=== PATIENT | female | born 1950 | race Caucasian/White ===

== ENCOUNTER 2017-08-18 11:53 | Inpatient (IN) | payer MEDICARE, OTHER ==
[~2017-08-18] VITALS: Ht 167.6 cm; Wt 59.4 kg
[~2017-08-18 11:53] MED LIST: HYDR7.5T76 PO; IBUP800T23 PO; TRAM50 PO
[2017-08-18] MEDS ORDERED: ePHEDrine/NS 25 MG/5 ML SYR IV ONE (12:00)
[2017-08-18] MEDS ORDERED: ONDANSETRON HCL 4 MG/2 ML VIAL IV PUSH ONE (12:00)
[2017-08-18] MEDS ORDERED: PHENYLEPH/NS 1000 MCG/10 ML SYR IV ONE (12:00)
[2017-08-18] MEDS ORDERED: PROPOFOL 200 MG/20 ML AMP IV ONE (12:00)
[2017-08-18] MEDS ORDERED: LIDOCAINE HCL 1% PF 5 ML SYRINGE OTHER ONE (12:00)
[2017-08-18] MEDS ORDERED: LACTATED RINGER'S 1000 ML INJ 3,000 ML IV ONE (12:00)
[2017-08-18] MEDS ORDERED: DEXAMETHASONE SOD PHOS 4 MG/ML VIAL IV ONE (12:00)
[2017-08-18] MEDS ORDERED: MIDAZOLAM HCL 2 MG/2 ML VIAL IV ONE (12:00)
[2017-08-18] MEDS ORDERED: ROCURONIUM INJ 50 MG/5 ML SYRINGE IV PUSH ONE (12:00)
[2017-08-18] MEDS ORDERED: MORPHINE SULFATE 4 MG/ML INJ IV ONE (12:00)
--- NOTE | 2017-08-18 12:05 | PD.HP.UP ---
H&P Update Note The Pre-Admit History and Physical Examination regarding the above named patient was reviewed (including, but not limited to, vital signs, heart, lungs, co-morbid conditions), and upon re-examination it is noted that: the patient's condition has not significantly changed since the last examination. Miller Barnett MD Aug 18, 2017 12:05
--- NOTE | 2017-08-18 12:57 | RADRPT ---
EXAM DATE/TIME: 08/18/2017 12:36 [facility] COMPARISON: No previous studies available for comparison. INDICATIONS : Evaluate for pneumonia, pneumothorax or communicable disease. Pre op for colon surgery for colon canc er. MEDICAL HISTORY : Chronic obstructive pulmonary disease. scoliosis SURGICAL HISTORY : None. ENCOUNTER: Initial ACUITY: 1 day PAIN SCORE: 0/10 LOCATION: Bilateral chest FINDINGS: Hyperinflation. Cardiomegaly. Dextroscoliosis of the thoracic spine. Linear densities at the left bas e suggestive of atelectasis versus scarring. CONCLUSION: Left basilar atelectasis versus scarring. Hyperinflation. Juan Manuel Rangel MD on August 18, 2017 at 12:56 Board Certified Radiologist. This report was verified electronically.
[2017-08-18] MEDS ORDERED: CHLORHEXIDINE GLUCONATE 2 % 1 PACK (2 CLOTHS) TOPICAL PRN (13:00)
[2017-08-18] MEDS ORDERED: INSULIN HUMAN REGULAR 1,000 UNITS/10 ML VIAL SQ PRN (13:00)
[2017-08-18] MEDS ORDERED: METRONIDAZOLE 500 MG/100 ML ISONTONIC SOLN IV SCH (13:00)
[2017-08-18] MEDS ORDERED: METOPROLOL TARTRATE 25 MG TAB PO PRN (13:00)
[2017-08-18] MEDS ORDERED: SODIUM CHLORID 0.9% 500 ML IV PRN (13:00)
[2017-08-18] MEDS ORDERED: ALVIMOPAN 12 MG CAPSULE - On Call PO SCH (13:00)
[2017-08-18] MEDS ORDERED: DEXT 5%-NACL 0.9% 1000 ML INJ 1,000 ML IV SCH (13:00)
[2017-08-18] MEDS ORDERED: LACTATED RINGER'S 1000 ML IV PRN (13:00)
[2017-08-18] MEDS ORDERED: POVIDONE IODINE 5% (ANTISEPSIS KIT) 4 APPLICATIONS EACH NARE PRN (13:00)
[2017-08-18] MEDS ORDERED: LORA0.5T PO (13:11)
[2017-08-18] MEDS ORDERED: METR-1 PO (13:11)
[2017-08-18] MEDS ORDERED: CIPR500T2 PO (13:11)
[2017-08-18] MEDS ORDERED: TRAM50TA PO (13:11)
[2017-08-18] MEDS ORDERED: DIPH25CA PO (13:11)
[2017-08-18] MEDS ORDERED: LEVOFLOXACIN 500 MG PREMIX INJ 100 ML IV SCH (14:00)
[2017-08-18 14:02] LABS: AUTOMATED NEUTROPHIL # 7.5 TH/MM3 (1.8-7.7); BASOPHIL # 0.1 TH/MM3 (0-0.2); BASOPHIL % 0.8 % (0.0-2.0); EOSINOPHIL % 0.4 % (0.0-4.0); HEMO FLAGS DIFF FINAL; LYMPH % 14.3 % (9.0-44.0); LYMPHOCYTE # 1.4 TH/MM3 (1.0-4.8); MEAN CELL VOLUME 91.9 FL (80.0-100.0); MEAN CORPUSCULAR HEMOGLOBIN 31.2 PG (27.0-34.0); MEAN CORPUSCULAR HGB CONC 33.9 % (32.0-36.0); MONO % 6.8 % (0.0-8.0); NEUT % 77.7 % (16.0-70.0); PLATELET COUNT 365 TH/MM3 (150-450); RED BLOOD COUNT 4.47 MIL/MM3 (4.00-5.30); RED CELL DISTRIBUTION WIDTH 13.5 % (11.6-17.2); WHITE BLOOD COUNT 9.7 TH/MM3 (4.0-11.0)
[2017-08-18] MEDS ORDERED: BUPIVACAINE HCL PF 0.5% 30 ML VIAL ONE ×4 (15:31→15:32)
--- NOTE | 2017-08-18 16:18 | PD.OP ---
Operative Report Date of Surgery: Aug 18, 2017 Preoperative Diagnosis: Sigmoid colon cancer Postoperative Diagnosis: Same Procedure: Cystoscopy with bilateral ureteral catheter placement Anesthesia: KEITH Surgeon: Christopher Johnson Jeweler Apprentice(s): None Resident Surgeon: None Operation and Findings: 67-year-old female with history of sigmoid colon cancer who was undergoing low anterior resection by Dr. Barnett. Request for made for bilateral ureteral catheter placement. Patient is brought to the operating room and placed in dorsal lithotomy position. She received preprocedure antibiotics and was given general endotracheal tube anesthesia. She is prepped and draped in usual sterile fashion. 22 Djiboutian cystoscopy was inserted and bladder cummings cystoscopy did not reveal any abnormalities. The left ureteral orifice was identified and a 5 Djiboutian catheter was inserted in the left ureteral orifice without difficulty. This was again repeated on the right side. 60 [place]iboutian Hernandez was inserted without difficulty catheters were attached the Hernandez. She tolerated the procedure well. Christopher Johnson DO Aug 18, 2017 16:18
[2017-08-18] MEDS ORDERED: SUGAMMADEX SODIUM 200 MG/2 ML VIAL IV PUSH ONE ×2 (18:01)
--- NOTE | 2017-08-18 18:14 | PD.OP ---
Operative Report Date of Surgery: Aug 18, 2017 Preoperative Diagnosis: Report of thermal injury left ureter Postoperative Diagnosis: Same Procedure: Cystoscopy with left double-J stent insertion Anesthesia: PRISCILAA Surgeon: Christopher Johnson Pediatric Clinical Dietician(s): None Resident Surgeon: None Operation and Findings: 67-year-old female who was undergoing a lower anterior resection for sigmoid colon cancer. Urology was called after a report of a thermal injury approximately one half inch to three quarters of an inch to the left ureter during surgery. At the beginning of the surgery bilateral ureteral catheters were placed by myself. Request is made for a placement of a indwelling left ureteral stent after this report. I arrived in the room after the patient was closed and did not get to evaluate the left ureter visually. The Hernandez catheter was removed as well as the left ureteral stent. The right ureteral stent had been removed earlier. 20 Nepalese scope was inserted in the bladder cummings cystoscopy did not reveal any abnormalities. The left ureteral orifice was identified and a 6 Nepalese open-ended catheter was inserted into this followed by 0.35 sensor wire. The wire was passed up to the kidney by feel. A 6 Nepalese 22 cm left double-J stent was then placed with a good curl in the bladder. A 16 Nepalese Hernandez catheter was inserted. She tolerated procedure well. The plan will be to leave the stent in for prostate 2 weeks to undergo cystoscopy with stent removal in the office. Christopher Johnson DO Aug 18, 2017 18:14
[2017-08-18] MEDS: D5-NS + KCL 20 MEQ INJ 1,000 ML IV SCH (18:32)
[2017-08-18] MEDS ORDERED: POTASSIUM CHLOR 20 MEQ PREMIX 100 ML IV PRN (18:45)
[2017-08-18] MEDS ORDERED: POTASSIUM CHLOR 40 MEQ PREMIX 100 ML IV PRN (18:45)
[2017-08-18] MEDS ORDERED: BUPIVACAINE HCL PF 0.5% 30 ML VIAL NB SCH (18:45)
[2017-08-18] MEDS ORDERED: ENALAPRILAT 1.25 MG/ML VIAL IV PUSH PRN (18:45)
[2017-08-18] MEDS ORDERED: BENZOCAINE 6 MG/MENTHOL 10 MG LOZENGE BUCCAL PRN (18:45)
[2017-08-18] MEDS ORDERED: NALOXONE HCL 0.4 MG/ML AMP IV PUSH PRN (18:45)
[2017-08-18] MEDS ORDERED: Post-op Orders (for Pharmacy) MISC XX ONE (18:45)
[2017-08-18] MEDS ORDERED: ENALAPRILAT 2.5 MG/2 ML VIAL IV PUSH PRN (18:45)
[2017-08-18] MEDS ORDERED: SODIUM CHLORIDE 0.9% FLUSH 5 ML FLUSH IVF PRN (18:45)
[2017-08-18] MEDS ORDERED: *morphine SULFATE 8 MG/ML PERIprocedure ONLY ONE (18:58)
[2017-08-18] MEDS ORDERED: *HYDROmorphone PF 1 MG VIAL PERIprocedural Use ONLY ONE (19:09)
[2017-08-18] MEDS ORDERED: DO NOT ADM ANY ANTICOAGULANT DRUGS PRN (19:15)
[2017-08-18] MEDS: MORPHINE SULFATE 30 MG/30 ML PCA IV SCH (19:20)
[2017-08-18 20:00] VITALS: BP 139/64; PULSE 68; RESP 18; TEMP 98.2; O2SAT 95
[2017-08-18] MEDS ORDERED: diphenhydrAMINE HCL 25 MG CAP PO ONE (20:00)
[2017-08-18] MEDS: SODIUM CHLORIDE 0.9% FLUSH 5 ML FLUSH IVF SCH (21:00)
[2017-08-18] MEDS: METOCLOPRAMIDE HCL 10 MG/2 ML VIAL IVS SCH (21:09)
[2017-08-18] MEDS: PCA - TOTAL MG MORPHINE DELIVERED PER SHIFT SCH (21:46)
[2017-08-18] MEDS: metroNIDAZOLE 500 MG INJ 100 ML IV SCH (22:46)
[2017-08-18 23:00] VITALS: BP 133/69; PULSE 80; PULSE 89; RESP 16; TEMP 98.4; O2SAT 95
[2017-08-19] VITALS (21 sets, daily range): BP systolic 109–146; BP diastolic 62–73; PULSE 85–108; RESP 16–19; TEMP 97.7–98.4; O2SAT 92–96
[2017-08-19] MEDS: D5-NS + KCL 20 MEQ INJ 1,000 ML IV SCH ×4 (00:15→23:56)
[2017-08-19] MEDS: MORPHINE SULFATE 30 MG/30 ML PCA IV SCH ×3 (03:02→16:15)
[2017-08-19 05:34] LABS: AUTOMATED NEUTROPHIL # 18.2 TH/MM3 (1.8-7.7); BASOPHIL % 0.1 % (0.0-2.0); HEMATOCRIT 41.5 % (35.0-46.0); HEMO FLAGS DIFF FINAL; LYMPH % 2.1 % (9.0-44.0); LYMPHOCYTE # 0.4 TH/MM3 (1.0-4.8); MEAN CELL VOLUME 92.6 FL (80.0-100.0); MEAN CORPUSCULAR HEMOGLOBIN 31.4 PG (27.0-34.0); MEAN CORPUSCULAR HGB CONC 33.9 % (32.0-36.0); MONO % 3.2 % (0.0-8.0); NEUT % 94.6 % (16.0-70.0); PLATELET COUNT 344 TH/MM3 (150-450); RED BLOOD COUNT 4.48 MIL/MM3 (4.00-5.30); RED CELL DISTRIBUTION WIDTH 13.4 % (11.6-17.2); WHITE BLOOD COUNT 19.3 TH/MM3 (4.0-11.0)
[2017-08-19] MEDS: PCA - TOTAL MG MORPHINE DELIVERED PER SHIFT SCH ×3 (05:34→21:00)
[2017-08-19 06:06] LABS: BICARBONATE 21.4 MEQ/L (21.0-32.0); POTASSIUM 4.2 MEQ/L (3.5-5.1)
[2017-08-19] MEDS: metroNIDAZOLE 500 MG INJ 100 ML IV SCH ×2 (06:06→16:00)
[2017-08-19 06:17] LABS: CALCIUM-PROTEIN CORRECTED 7.9 MG/DL (8.5-10.1)
--- NOTE | 2017-08-19 07:36 | HHI.PR ---
Subjective Remarks C/R Surg POD # 1 afebrile, VSS UO good HUMA mod Objective - Vital Signs Date Time Temp Pulse Resp B/P (MAP) Pulse Ox O2 Delivery O2 Flow Rate FiO2 08/19/17 07:15 99 08/19/17 05:34 16 08/19/17 03:00 98.2 146/73 (97) 96 08/18/17 19:50 Nasal Cannula 4 Result Diagram: 08/19/170 08/19/17 0450 Objective Remarks PE alert Abd - soft, wound dry, HUMA serosang stoma pink A/P Assessment and Plan Imp: stable post-op OOB dcre IVF tx to floor Miller Barnett MD Aug 19, 2017 07:36
[2017-08-19] MEDS: PANTOPRAZOLE SOD 40 MG DELAYED RELEASE TAB PO SCH (09:00)
[2017-08-19] MEDS ORDERED: ALVIMOPAN 12 MG CAPSULE - Post-op dosing PO SCH (09:00)
[2017-08-19] MEDS: SODIUM CHLORIDE 0.9% FLUSH 5 ML FLUSH IVF SCH ×2 (09:00→20:59)
[2017-08-19] MEDS: PANTOPRAZOLE SODIUM 40 MG VIAL IVP SCH (09:16)
[2017-08-19] MEDS: METOCLOPRAMIDE HCL 10 MG/2 ML VIAL IVS SCH ×2 (09:17→20:59)
--- NOTE | 2017-08-19 09:29 | MP ---
cc: IDANIA KIM ANDREW H. M.D. 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 PROCEDURE 1. Exploratory laparotomy with proctosigmoidectomy and en bloc total abdominal hysterectomy. Bilateral salpingo-oophorectomy. 2. Low pelvic anastomosis. 3. Diverting ileostomy 4. Omental flap 5. 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 SURGEON Dr. Miller Barnett SOFTWARE LICENSING SPECIALIST Dr. Govind Alfaro PROCEDURE The patient was placed in the supine position. After adequate general anesthesia, her legs were placed in the Morrow stirrups and supported appropriately. The abdomen, perineum and vaginal vault were then prepped with Betadine solution and draped in the usual sterile fashion. With Dr. Alfaro' assistance, the abdomen was opened through a infraumbilical transverse incision dividing the rectus muscles with electrocautery. Exploration revealed a large bulky tumor of the distal sigmoid proximal rectum which was adherent to the left pelvic sidewall and the posterior uterus and apex of the vagina in the cul-de-sac region. The proximal bowel was palpated very carefully and other then having some liquid stool and air appeared to be pretty grossly unremarkable. The small bowel was run from ligament of Treitz down to the ileocecal valve was unremarkable. The ovaries were seen and appropriate for her age. The liver had no palpable masses. The gallbladder was thin and normal in texture and had no stones. The stomach and duodenum were normal. The pancreas was quite hard and marisela and somewhat firm in texture along its entire length. The great vessels were of normal caliber and minimally calcified. First, the sigmoid colon was mobilized medially by dividing along the white line of Toldt. The left ureteral stent was identified and carefully preserved. Dissection then proceeded up the left gutter mobilizing the left colon off the retroperitoneum, taking down the splenic flexure entering the lesser sac and taking the gastrocolic omentum off the transverse colon. The right retroperitoneal space was then opened and the bowel dissected off the presacral fascia down to the pelvic floor. The pedicle for the superior hemorrhoidal vessels identified and divided between Tameka's obtaining hemostasis with Vicryl ties. The right ureteral stent was also identified and preserved. Dissection then proceeded up taking the left colic vessels for full left mobilization. Dissection then proceeded down into the pelvis at which point it was determined that an en bloc hysterectomy, bilateral salpingo-oophorectomy was going to be necessary. The ovarian vessels were therefore taken on both sides between Tameka's obtaining hemostasis with Vicryl ties. The round ligaments were divided with electrocautery. Dissection then proceeded down the infundibulopelvic ligaments taking the vessels with Vickie clamps and securing them with suture ligatures of 0 Vicryl. On the left side, the ureter was skeletonized due to involvement of at least inflammatory tissue along the length of the ureter down near the cul-de-sac. After the bladder flap was fully developed, dissection proceeded in a stepwise fashion until the apex of the vagina was identified and was opened. The vaginal dissection proceeded posteriorly identifying a plane between the posterior vaginal wall and the anterior rectal wall which finally got below the tumor into softer rectal tissues. At a point below the tumor mass, the mesorectum was taken with electrocautery and the bowel finally divided using a contour stapling device. The bowel was then sized to reach the rectal pouch without tension and with good blood supply dividing the marginal artery at the appropriate point, the bowel was then divided proximally between a pursestring suture device and a Vickie clamp removing the specimen. The end of the bowel was sized to accept a 29-mm EEA stapling anvil and this was secured with a pursestring suture. Dr. Alfaro then inserted the stapling instrument transanally and under direct vision it was brought up to the end of the rectal pouch. The trocar advanced. The stapler was then reassembled, the bowel aligned properly, the staple closed and fired. Upon withdrawal, two complete doughnuts of tissue were seen. Gentle insufflation did confirm an airtight anastomosis. The abdomen was then irrigated copiously with normal saline. Adequate hemostasis achieved at all sites. The vaginal cuff was closed with a running locking Vicryl suture with good hemostasis. Kevin-Garibay drain was placed down into the pelvis and brought up through a stab wound in the right lower quadrant secured to the skin with a nylon suture. A loop of distal ileum was chosen for the diverting ileostomy and an avascular plane created in the mesentery. A circular stab wound was created in the right upper quadrant and the loop brought up through the stab wound without tension and with good blood supply. The omentum was then fashioned and a long pedicle flap passed down the left gutter and wrapped around the anastomosis to separate it from the vaginal closure. No gross tumor was remaining at the end of the procedure. It should be noted, the bowel was prepped prior to the anastomosis with several liters of saline until the effluent was pretty clear. Finally, the transverse incision was closed anatomically in two layers using #1 PDS sutures to reapproximate the respective fascial layers. On-Q catheters were placed into the rectus sheaths on both sides brought up through subcutaneous tunnels below the transverse incision. The subcu tissue was irrigated copiously and the skin closed with a row of surgical aureliano. The wound area washed with normal saline and dried, sterile dressing of Telfa and gauze applied. Finally, the ileostomy was matured in the usual Sandhya fashion by creating an enterotomy, stapling the distal limb and maturing the proximal limb with a row of interrupted chromic catgut sutures around the circumference. At completion, the stoma did appear to be viable and was patent through the fascial level. Sterile ileostomy appliance fitted over the new stoma. The patient tolerated the procedure quite well and was brought to recovery room in stable condition. Sponge and needle counts were correct at the end of the procedure. MD LEVY Doherty/GISELLE /7:52 AM /9:10 AM
--- NOTE | 2017-08-19 10:24 | HHI.PR ---
Subjective Patient symptoms today Pt seen and examined. Some incisional pain. Urine blood tinged. Objective Vital Signs Vital Signs Date Time Temp Pulse Resp B/P (MAP) Pulse Ox O2 Delivery O2 Flow Rate FiO2 08/19/17 10:00 97 08/19/17 09:40 18 08/19/17 09:23 19 08/19/17 09:00 99 08/19/17 08:01 94 08/19/17 07:15 99 08/19/17 07:00 98.4 96 18 131/71 (91) 96 08/19/17 07:00 96 Nasal Cannula 2.00 08/19/17 06:01 99 08/19/17 05:34 16 08/19/17 05:00 96 08/19/17 04:00 87 08/19/17 03:02 16 08/19/17 03:00 91 08/19/17 03:00 98.2 88 16 146/73 (97) 96 08/19/17 02:10 91 08/19/17 01:18 85 08/18/17 23:00 98.4 80 16 133/69 (90) 95 08/18/17 23:00 89 08/18/17 21:46 16 08/18/17 20:00 98.2 68 18 139/64 (89) 95 08/18/17 19:50 82 14 130/73 (92) 97 Nasal Cannula 4 08/18/17 19:30 81 14 144/72 (96) 90 Nasal Cannula 4 08/18/17 19:20 14 08/18/17 19:15 80 14 132/65 (87) 90 Nasal Cannula 4 08/18/17 19:00 80 14 127/65 (85) 92 Nasal Cannula 4 08/18/17 18:45 87 14 127/68 (87) 92 Nasal Cannula 4 08/18/17 18:37 98.0 92 14 145/65 (91) 95 Nasal Cannula 4 08/18/17 13:28 97.8 71 20 138/78 (98) 96 Intake & Output 08/19/17 08/19/17 07:00 19:00 Intake Total 5256.9 ml 96 ml Output Total 2060 ml Balance 3196.9 ml 96 ml Intake Oral 0 ml IV Total 1756.9 ml 96 ml Other 3500 ml Output Urine Total 1650 ml Drainage Total 110 ml Estimated Blood Loss 300 ml # Bowel Movements 1 Result Diagram: 08/19/1744908/19/17449 Objective Remarks Abd:soft,nt,nd Urine: blood tinged Medications and IVs Current Medications Medications (Trade) Dose Ordered Sig/Toni Route Start Time Stop Time Status Last Admin Potassium Chloride/Dextrose/ Sod Cl 1,000 ml @ 100 mls/hr Q10H IV 08/18/17 18:32 08/19/17 06:06 (NS Flush) 2 ml UNSCH PRN IVF 08/18/17 18:45 (NS Flush) 2 ml BID IVF 08/18/17 21:00 08/19/17 09:00 Metronidazole 100 ml @ 200 mls/hr Q8H IV 08/18/17 23:00 08/19/17 15:29 08/19/17 06:06 (Marcaine Pf 0.5% Inj) 360 ml UNSCH NB 08/18/17 18:45 08/18/17 18:20 (Concord 5-325 Mg) 1 tab Q4H PRN PO 08/18/17 18:45 (Concord 5-325 Mg) 2 tab Q4H PRN PO 08/18/17 18:45 (Entereg) 12 mg BID PO 08/19/17 21:00 08/26/17 09:01 (Protonix Inj) 40 mg DAILY IVP 08/19/17 09:00 08/19/17 09:16 (Protonix) 40 mg DAILY PO 08/19/17 09:00 (Reglan Inj) 10 mg Q12HR IVS 08/18/17 21:00 08/19/17 09:17 (Zofran Inj) 4 mg Q6H PRN IV PUSH 08/18/17 18:45 (Vasotec Inj) 1.25 mg Q4H PRN IV PUSH 08/18/17 18:45 (Vasotec Inj) 2.5 mg Q6H PRN IV PUSH 08/18/17 18:45 (Chloraseptic Adilene) 1 lozenge UNSCH PRN BUCCAL 08/18/17 18:45 Potassium Chloride 100 ml @ 50 mls/hr UNSCH PRN IV 08/18/17 18:45 Potassium Chloride 100 ml @ 25 mls/hr UNSCH PRN IV 08/18/17 18:45 (Heparin Inj) 5,000 units Q12H SQ 08/19/17 18:00 (Narcan Inj) 0.4 mg UNSCH PRN IV PUSH 08/18/17 18:45 (Morphine 1 Mg/ ml BET TAKER) 30 mg UNSCH IV 08/18/17 18:45 08/19/17 09:23 BET TAKER Dosage Infused (Pha) 1 Q8HR .XX 08/18/17 22:00 08/19/17 05:34 (Ativan) 0.5 mg Q6H PRN PO 08/18/17 18:45 (Ultram) 50 mg Q6H PRN PO 08/18/17 18:45 Levofloxacin/ Dextrose 100 ml @ 100 mls/hr Q24H IV 08/19/17 15:00 Miscellaneous Information ALL NURSING DEPARTME... UNSCH PRN .XX 08/18/17 19:15 08/19/17 19:14 Assessment and Plan Assessment and Plan Stable s/p cysto with left JJ stent insertion after possible thermal injury to left ureter Left JJ stent in good position on KUB Maintain alonzo for now Stent to be removed in a couple of weeks as outpt. Christopher Johnson DO Aug 19, 2017 10:24
--- NOTE | 2017-08-19 10:31 | RADRPT ---
EXAM DATE/TIME: 08/19/2017 09:08 [facility] COMPARISON: No previous studies available for comparison. INDICATIONS : Evaluate left JJ stent placement. Abdominal pain. MEDICAL HISTORY : Chronic obstructive pulmonary disease. Carcinoma, colon. Asthma, Smoker. Scoliosis. SURGICAL HISTORY : Hysterectomy. Colostomy. ENCOUNTER: Subsequent ACUITY: 2 days PAIN SCORE: 10/10 LOCATION: Bilateral lower quadrant FINDINGS: A left internal ureteral stent is noted and appears to be adequate in position. A Kevin-Garibay drain is noted within the right lower quadrant. Ostomy site is noted within the right mid abdomen. There i s no bowel obstruction or ileus. No radiopaque densities resembling urinary calculi are noted. There is moderate compression deformity involving the L3 vertebral body of indeterminate age. CONCLUSION: Left internal ureteral stent appears to be in good position. No bowel obstruction or ileus. Moderate compression deformity involving the L3 vertebral body of indeterminate age. Jesse Amin MD on August 19, 2017 at 10:25 Board Certified Radiologist. This report was verified electronically.
[2017-08-19] MEDS: LORazepam 0.5 MG TAB PO PRN ×2 (12:20→18:16)
[2017-08-19] MEDS: LEVOFLOXACIN 500 MG PREMIX INJ 100 ML IV SCH (14:34)
--- NOTE | 2017-08-19 16:23 | EKG ---
Date Performed: 08/18/2017 Time Performed: 12:29:24 PTAGE: 67 years EKG: Sinus rhythm NORMAL ECG PREVIOUS TRACING : 11/30/2012 03.13 Compared to prior tracing no significant change DOCTOR: Marybeth Stock Interpretating Date/Time 08/19/2017 16:22:31
[2017-08-19] MEDS: HEPARIN SODIUM - SQ 10,000 UNITS/ML VIAL SQ SCH (17:19)
--- NOTE | 2017-08-19 18:19 | PD.WCN.NOT ---
Wound Consult Description: Consult for New Ostomy Teaching of stoma per Dr Barnett Communicated with: Patient Lisa, RN Recommendation: [facility] opening and closing pouch, and attaching pouch to wafer. Read educational material left at bedside Observe staff opening, emptying, and closing pouch Additional Information: Patient seen on for ostomy teaching and assessment. Ostomy Type: Ileostomy Surgeon: Miller Barnett MD Date of Surgery: Aug 18, 2017 Complete: Education materials Educated patient on: General bowel anatomy and their function Opening and closing pouch Attaching pouch to wafer Stoma appearance Stoma size Output Additional information Patient seen briefly on for ostomy assessment and teaching. Patient is currently POD #1 and using MANAGER FIELD SALES pump often. Patient is falling asleep during teaching and demonstration. Patient and narrative writer made plans for teaching session Wednesday08/20/17. Stoma on right side abdomen is red, round, moist, protruding, lumen noted @ 9 o'clock. There is minimal mucus and sanguinous fluid noted to pouch that was not emptied. Appliance is intact. Narda CamargoN Aug 19, 2017 18:19
[2017-08-19] MEDS: ACETAMINOPHEN/HYDROcodone 325 MG/5 MG TAB PO PRN (20:58)
[2017-08-19] MEDS: ALVIMOPAN 12 MG CAPSULE PO SCH (20:58)
[2017-08-19] MEDS: traMADol HCL 50 MG TAB PO PRN (23:54)
[2017-08-20] VITALS: BP 135/63; PULSE 98; RESP 18; TEMP 97.8; O2SAT 92
[2017-08-20] MEDS: MORPHINE SULFATE 30 MG/30 ML PCA IV SCH ×2 (00:22→16:44)
[2017-08-20 04:00] VITALS: BP 136/65; PULSE 95; RESP 18; TEMP 97.3; O2SAT 94
[2017-08-20] MEDS: PCA - TOTAL MG MORPHINE DELIVERED PER SHIFT SCH ×3 (05:31→20:21)
[2017-08-20] MEDS: HEPARIN SODIUM - SQ 10,000 UNITS/ML VIAL SQ SCH ×2 (05:32→17:46)
[2017-08-20 08:00] VITALS: BP 132/66; PULSE 96; RESP 18; TEMP 98.3; O2SAT 92
[2017-08-20] MEDS: PANTOPRAZOLE SODIUM 40 MG VIAL IVP SCH (09:00)
[2017-08-20] MEDS: SODIUM CHLORIDE 0.9% FLUSH 5 ML FLUSH IVF SCH ×2 (09:00→20:20)
[2017-08-20 09:07] LABS: AUTOMATED NEUTROPHIL # 14.5 TH/MM3 (1.8-7.7); BASOPHIL % 0.2 % (0.0-2.0); HEMATOCRIT 34.5 % (35.0-46.0); HEMO FLAGS DIFF FINAL; LYMPH % 5.9 % (9.0-44.0); MEAN CELL VOLUME 93.7 FL (80.0-100.0); MEAN CORPUSCULAR HEMOGLOBIN 31.9 PG (27.0-34.0); MONO % 5.4 % (0.0-8.0); NEUT % 88.5 % (16.0-70.0); PLATELET COUNT 296 TH/MM3 (150-450); RED BLOOD COUNT 3.69 MIL/MM3 (4.00-5.30); RED CELL DISTRIBUTION WIDTH 13.7 % (11.6-17.2); WHITE BLOOD COUNT 16.3 TH/MM3 (4.0-11.0)
[2017-08-20] MEDS: PANTOPRAZOLE SOD 40 MG DELAYED RELEASE TAB PO SCH (09:07)
[2017-08-20] MEDS: METOCLOPRAMIDE HCL 10 MG/2 ML VIAL IVS SCH ×2 (09:07→20:20)
[2017-08-20] MEDS: ALVIMOPAN 12 MG CAPSULE PO SCH ×2 (09:07→20:20)
[2017-08-20] MEDS: LORazepam 0.5 MG TAB PO PRN ×2 (09:20→22:00)
[2017-08-20 09:53] LABS: BICARBONATE 21.9 MEQ/L (21.0-32.0); POTASSIUM 4.2 MEQ/L (3.5-5.1)
[2017-08-20 12:00] VITALS: BP 135/70; PULSE 97; RESP 18; TEMP 98.4; O2SAT 92
[2017-08-20] MEDS: D5-NS + KCL 20 MEQ INJ 1,000 ML IV SCH (12:05)
--- NOTE | 2017-08-20 15:15 | PD.WCN.NOT ---
Wound Consult Description: Consult for New Ostomy Teaching of stoma per Dr Barnett Communicated with: Patient, who was falling asleep during assessment and teaching (with COACH WIRER pump). Recommendation: [facility] opening and closing pouch, and attaching pouch to wafer. Read educational material left at bedside and write down any questions you may have for next teaching session Observe staff opening, emptying, and closing pouch when 1/3-1/2 full Additional Information: Patient seen on [address] [place] [address] for ostomy assessment and minimal teaching due to patient status Ostomy Type: Ileostomy Surgeon: Miller Barnett MD Date of Surgery: Aug 18, 2017 Complete: Starter kit (Verbal consent obtained), Education materials ([facility] educational materials left in patient room for reinforcement of teaching), Other (Supplies ordered in size 1 3/4" and 2 1/4" for when appliance needs to be changed.) Educated patient on: Stoma appearance Function of ileostomy Stoma size 1 1/4" Removing barrier with adhesive removal wipes Assessing back side of wafer Assessing peristomal skin for breakdown Measuring stoma for correct appliance size Applying barrier to abdomen and then applying closed pouch to barrier Emptying pouch when 1/3- 1/2 full, before bedtime, and first thing in the morning Additional information Patient seen on [address] [place] [address] for ostomy assessment and teaching of ileostomy noted to right side abdomen. Patient was falling asleep while attempting to educate her on her stoma and appliances. Educational material left in room, patient states her daughter will read it to her when she gets here. Appliances in size 1 3/4" and 2 1/4' ordered from [facility] for appliance change. [facility] Aug 20, 2017 15:15
[2017-08-20 16:00] VITALS: BP 160/72; PULSE 95; RESP 18; TEMP 99.1; O2SAT 92
[2017-08-20] MEDS: LEVOFLOXACIN 500 MG PREMIX INJ 100 ML IV SCH (16:42)
[2017-08-20] MEDS: ONDANSETRON HCL 4 MG/2 ML VIAL IV PUSH PRN (18:15)
--- NOTE | 2017-08-20 19:24 | HHI.FF ---
Face to Face Verification Diagnosis: (1) Rectosigmoid cancer Physical Therapy Order: Evaluate and Treat, Improve ambulation, Strength and gait training Home Health Nursing Order: Medical education Signs/symptoms of disease process Wound care and dressing changes Instructions: stoma care I have seen patient Dipti Oh on 08/20/17. My clinical findings support the need for the requested home health care services because: Ltd mobility - disease progression Deconditioned w/ increased weakness Need for psychosocial assistance Infection w/ risk of complications I certify that my clinical findings support that this patient is homebound because: Post-op weakness Unsteady gait/balance Miller Barnett MD Aug 20, 2017 19:24
[2017-08-20 20:00] VITALS: BP 141/70; PULSE 100; RESP 17; TEMP 99.7; O2SAT 90
[2017-08-20] MEDS: guaiFENesin E.R. 600 MG TAB PO PRN (22:10)
--- NOTE | 2017-08-20 22:52 | HHI.PR ---
Subjective Remarks C/R Surg POD # 2 afebrile, VSS UO good HUMA mod Objective - Vital Signs Date Time Temp Pulse Resp B/P (MAP) Pulse Ox O2 Delivery O2 Flow Rate FiO2 08/20/17 20:21 16 08/20/17 20:00 99.7 100 141/70 (93) 90 08/19/17 21:00 Nasal Cannula 1.00 Result Diagram: 08/20/1772908/20/17 0730 Objective Remarks PE alert Abd - soft, wound dry, HUMA serosang stoma pink, ON-q dc'd A/P Assessment and Plan Imp: OOB dcre IVF start PO resp tx Miller Barnett MD Aug 20, 2017 22:52
[2017-08-21] VITALS (10 sets, daily range): BP systolic 123–153; BP diastolic 56–82; PULSE 81–109; RESP 17–30; TEMP 96.6–99.1; O2SAT 80–95
[2017-08-21] MEDS: RESP: ALBUTEROL 2.5 MG/3 ML NEB (SCH) INH ×5 (00:04→19:23)
[2017-08-21] MEDS: D5-NS + KCL 20 MEQ INJ 1,000 ML IV SCH ×2 (00:29→10:29)
[2017-08-21] MEDS: PCA - TOTAL MG MORPHINE DELIVERED PER SHIFT SCH ×3 (05:53→22:00)
[2017-08-21] MEDS: HEPARIN SODIUM - SQ 10,000 UNITS/ML VIAL SQ SCH ×2 (05:53→18:00)
[2017-08-21] MEDS: LORazepam 0.5 MG TAB PO PRN ×2 (06:21→22:07)
[2017-08-21] MEDS: MORPHINE SULFATE 30 MG/30 ML PCA IV SCH ×2 (06:24→19:26)
[2017-08-21] MEDS: guaiFENesin E.R. 600 MG TAB PO PRN (08:38)
[2017-08-21] MEDS: PANTOPRAZOLE SODIUM 40 MG VIAL IVP SCH (08:38)
[2017-08-21] MEDS: PANTOPRAZOLE SOD 40 MG DELAYED RELEASE TAB PO SCH (08:38)
[2017-08-21] MEDS: ALVIMOPAN 12 MG CAPSULE PO SCH ×2 (08:38→19:27)
[2017-08-21] MEDS: SODIUM CHLORIDE 0.9% FLUSH 5 ML FLUSH IVF SCH ×2 (08:39→19:28)
[2017-08-21] MEDS: METOCLOPRAMIDE HCL 10 MG/2 ML VIAL IVS SCH ×2 (08:40→19:27)
[2017-08-21] MEDS ORDERED: FUROSEMIDE 40 MG/4 ML VIAL ONE (15:35)
[2017-08-21] MEDS: LEVOFLOXACIN 500 MG TAB PO SCH (15:39)
[2017-08-21] MEDS ORDERED: FUROSEMIDE 20 MG/2 ML VIAL IV PUSH ONE (15:45)
[2017-08-21 16:10] LABS: BLOOD GAS BASE EXCESS 0.6 mmol/L (-2-2); BLOOD GAS CARBOXYHEMOGLOBIN 0.9 % (0-4); BLOOD GAS HCO3 25 mmol/L (22-26); BLOOD GAS METHEMOGLOBIN 0.8 % (0-2); BLOOD GAS O2 HGB SATURATION 88 % (90-100); BLOOD GAS OXYGEN CONTENT 15.6 Vol % (12.0-20.0); BLOOD GAS PCO2 38 mmHg (38-42); BLOOD GAS PO2 55 mmHg (61-120); BLOOD GAS TOTAL HGB 12.6 G/DL (12.0-16.0); TEMP CORR TO 98.6
[2017-08-21 16:13] LABS: CRITICAL VALUE YES; DRAW SITE LT RADIAL; LITER FLOW 15 L/M; NUMBER OF ARTERIAL PUNCTURES 1; OXYGEN DEVICE NONREBREATHER; STAT YES
--- NOTE | 2017-08-21 16:15 | RADRPT ---
EXAM DATE/TIME: 08/21/2017 15:47 [facility] COMPARISON: CHEST SINGLE AP, August 18, 2017, 12:36. INDICATIONS : Shortness of breath. MEDICAL HISTORY : Chronic obstructive pulmonary disease. SURGICAL HISTORY : None. ENCOUNTER: Subsequent ACUITY: 3 days PAIN SCORE: 0/10 LOCATION: chest FINDINGS: Small to moderate right and small left pleural effusions are developing. There is mild bibasilar atel ectasis. There a few air bronchograms in the left infrahilar region suggesting a possible pneumonia. No pneumothorax. Heart size stable and within normal limits. CONCLUSION: Small moderate bilateral pleural effusions have developed. Mild bibasilar atelectasis. Potentially early or mildpneumonia in the proper clinical setting. Enrrique Turk MD on August 21, 2017 at 16:12 Board Certified Radiologist. This report was verified electronically.
[2017-08-21] MEDS ORDERED: SODIUM PHOSPHATE INJ 30 MMOL in SODIUM CHLOR 0.9% 250 ML INJ 240 ML IV PRN (17:30)
[2017-08-21] MEDS ORDERED: POTASSIUM CHLORIDE 25 MEQ EFFERVESCENT TAB PO PRN (17:30)
[2017-08-21] MEDS ORDERED: POTASSIUM PHOSPHATE MONOBASIC 500 MG TAB PO PRN (17:30)
[2017-08-21] MEDS ORDERED: POTASSIUM CHLOR 40 MEQ PREMIX 100 ML IV PRN ×2 (17:30)
[2017-08-21] MEDS ORDERED: POTASSIUM CHLOR 20 MEQ PREMIX 100 ML IV PRN ×2 (17:30)
[2017-08-21] MEDS ORDERED: POTASSIUM PHOSPHATE INJ 30 MMOL in SODIUM CHLOR 0.9% 250 ML INJ 250 ML IV PRN (17:30)
[2017-08-21] MEDS ORDERED: MAGNESIUM OXIDE 400 MG TAB PO PRN (17:30)
[2017-08-21] MEDS ORDERED: MAGNESIUM SULFATE INJ 2 GM in SODIUM CHLORIDE 0.9% INJ 96 ML IV PRN (17:30)
[2017-08-21] MEDS ORDERED: POTASSIUM PHOSPHATE MONOBASIC 500 MG TAB PO/TUBE PRN (17:30)
[2017-08-21] MEDS ORDERED: MAGNESIUM SULFATE INJ 4 GM in SODIUM CHLORIDE 0.9% INJ 92 ML IV PRN (17:30)
--- NOTE | 2017-08-21 17:45 | PD.CONS ---
HPI Service Critical Care Medicine Consult Requested By Colorectal Surgery Service Reason for Consult Respiratory Insufficiency, Hypoxemia Primary Care Physician Non-Staff History of Present Illness Otherwise healthy, pleasant 67 y/o woman recently s/p en bloc resection of upper rectum, sigmoid colon, and uterus for a T4b primary rectal malignancy. Low anastomosis and diverting ileostomy. She developed sudden SOB and tachypnea today with documented hypoxemia by ABG on NRBM. CXR confirms small bilateral pleural effusions and interstitial edema. In addition there is considerable bibasilar atelectasis undoubtedly related to limited diaphragmatic excursions - probably from postoperative abdominal pain. She has received lasix with a > 1 liter diuresis and already looks better.Afebrile throughout postop course. She has a considerable smoking history and her preop CXR reveals baseline COPD. Review of Systems ROS No chest pain. Well controlled abdominal pain. No fevers or chills. Past Family Social History Allergies: Coded Allergies: acetaminophen (Unverified Allergy, Severe, 05/18/17) erythromycin base (Unverified Allergy, Severe, 05/18/17) penicillin G (Unverified Allergy, Severe, ANAPHYLACTIC SHOCK, 05/18/17) aspirin (Verified Allergy, Unknown, 08/18/17) codeine (Verified Allergy, Unknown, 08/18/17) Uncoded Allergies: ALL CILLINS (Allergy, Severe, SOB, 11/08/10) ADHESIVE TAPE (Allergy, Unknown, 08/09/06) NSAIDS (Allergy, Unknown, bleeding, 08/18/17) Past Medical History Smoking. Ativan for anxiety. Physical Exam Vital Signs Vital Signs Date Time Temp Pulse Resp B/P (MAP) Pulse Ox O2 Delivery O2 Flow Rate FiO2 08/21/17 16:00 98.1 108 22 153/76 (101) 80 08/21/17 14:45 92 Non-Rebreather 08/21/17 12:00 92 08/21/17 12:00 96.9 100 20 136/66 (89) 88 08/21/17 08:45 92 Venturi Mask 6.00 50 08/21/17 08:00 97.9 93 18 138/63 (88) 90 08/21/17 08:00 90 Nasal Cannula 3.00 08/21/17 06:24 16 08/21/17 05:53 16 08/21/17 04:00 96.6 90 18 131/72 (91) 92 08/21/17 00:44 90 Venturi Mask 6.00 50 08/21/17 00:04 88 Nasal Cannula 5.00 08/21/17 00:00 97.3 96 17 141/67 (91) 91 08/20/17 20:21 16 08/20/17 20:12 Room Air 3.00 08/20/17 20:00 99.7 100 17 141/70 (93) 90 Physical Exam Gen: Healthy appearing, no acute distress. Head: Atraumatic, normal. Neck: Supple, airway widely patent. Lungs: Clear, some crackles in bases. Decreased breath sounds in bases. Strong cough. Heart: NL S1S2, RRR. No JVD. Abdomen: Postsurgical, stoma viable, well perfused. Nondistended. Extremities: Warm, well perfused. Neuro: O X 3, cooperative. Moves 4 limbs to command. SARAHY. EOMs intact. Laboratory Laboratory Tests Test 08/21/17 16:00 Blood Gas Puncture Site LT RADIAL Blood Gas Patient Temperature 98.6 Blood Gas HCO3 25 Blood Gas Base Excess 0.6 Blood Gas Oxygen Saturation 88 Arterial Blood pH 7.42 Arterial Blood Partial Pressure CO2 38 Arterial Blood Partial Pressure O2 55 Arterial Blood Oxygen Content 15.6 Arterial Blood Carboxyhemoglobin 0.9 Arterial Blood Methemoglobin 0.8 Blood Gas Hemoglobin 12.6 Oxygen Delivery Device NONREBREATHER Blood Gas Liter Flow 15 Result Diagram: 08/20/17 0730 08/20/17 0730 Assessment and Plan Assessment and Plan Assessment: 1. Respiratory insufficiency, hypoxemic. 2. S/P colon/uterus resection for rectal malignancy. 3. COPD. 4. Atelectasis. Plan: 1. Continue diuretics. 2. Bronchodilators. 3. Incentive spirometry. 4. BNP. 5. BiPAP hs. 6. Deep breathing, coughing exercises. Overall impression: This does not appear to be pneumonia but rather basilar atelectasis and mild fluid overload. We will try to get her bases better aerated with mechanical maneuvers and continue diuresis. Angel Redd MD Aug 21, 2017 17:45
[2017-08-21] MEDS ORDERED: FUROSEMIDE 40 MG/4 ML VIAL IV PUSH ONE (21:00)
[2017-08-21] MEDS: ACETAMINOPHEN/HYDROcodone 325 MG/5 MG TAB PO PRN (22:09)
[2017-08-21] MEDS: traMADol HCL 50 MG TAB PO PRN (22:10)
[2017-08-22] VITALS (8 sets, daily range): BP systolic 104–155; BP diastolic 63–79; PULSE 86–110; RESP 20–28; TEMP 95.2–98.7; O2SAT 88–93
[2017-08-22] MEDS: PCA - TOTAL MG MORPHINE DELIVERED PER SHIFT SCH ×3 (05:31→20:25)
--- NOTE | 2017-08-22 05:35 | RADRPT ---
EXAM DATE/TIME: 08/22/2017 04:22 [facility] COMPARISON: CHEST SINGLE AP, August 21, 2017, 15:47. INDICATIONS : Hypoxemia MEDICAL HISTORY : Chronic obstructive pulmonary disease. scoliosis, Colon Ca. Asthma, SURGICAL HISTORY : Hysterectomy. Colostomy. ENCOUNTER: Subsequent ACUITY: 4 - 6 days PAIN SCORE: 0/10 LOCATION: Bilateral chest FINDINGS: Increasing opacity in the left lower lung, now with consolidation and loss of delineation of the medi al left hemidiaphragm. Elevation of the right hemidiaphragm. No right lung infiltrates seen. The h eart is upper limits normal size. CONCLUSION: Increasing infiltrates at the left base, now with consolidation. Alex Means MD on August 22, 2017 at 5:32 Board Certified Radiologist. This report was verified electronically.
[2017-08-22] MEDS: HEPARIN SODIUM - SQ 10,000 UNITS/ML VIAL SQ SCH ×2 (05:36→18:24)
[2017-08-22] MEDS: LORazepam 0.5 MG TAB PO PRN ×3 (06:21→18:24)
[2017-08-22 07:04] LABS: AUTOMATED NEUTROPHIL # 8.5 TH/MM3 (1.8-7.7); BASOPHIL % 0.3 % (0.0-2.0); EOSINOPHIL % 0.1 % (0.0-4.0); HEMATOCRIT 36.2 % (35.0-46.0); HEMO FLAGS DIFF FINAL; LYMPH % 10.4 % (9.0-44.0); LYMPHOCYTE # 1.1 TH/MM3 (1.0-4.8); MEAN CELL VOLUME 91.7 FL (80.0-100.0); MEAN CORPUSCULAR HEMOGLOBIN 31.2 PG (27.0-34.0); MEAN CORPUSCULAR HGB CONC 34.1 % (32.0-36.0); MONO % 6.6 % (0.0-8.0); NEUT % 82.6 % (16.0-70.0); PLATELET COUNT 359 TH/MM3 (150-450); RED BLOOD COUNT 3.95 MIL/MM3 (4.00-5.30); RED CELL DISTRIBUTION WIDTH 13.1 % (11.6-17.2); WHITE BLOOD COUNT 10.3 TH/MM3 (4.0-11.0)
[2017-08-22 07:14] LABS: BICARBONATE 29.8 MEQ/L (21.0-32.0); POTASSIUM 3.3 MEQ/L (3.5-5.1)
[2017-08-22] MEDS: RESP: ALBUTEROL 2.5 MG/3 ML NEB (SCH) INH ×4 (07:58→19:32)
[2017-08-22] MEDS: SODIUM CHLORIDE 0.9% FLUSH 5 ML FLUSH IVF SCH ×2 (09:00→20:25)
[2017-08-22] MEDS: ALVIMOPAN 12 MG CAPSULE PO SCH ×2 (09:37→20:25)
[2017-08-22] MEDS: PANTOPRAZOLE SOD 40 MG DELAYED RELEASE TAB PO SCH (09:37)
[2017-08-22] MEDS: METOCLOPRAMIDE HCL 10 MG/2 ML VIAL IVS SCH ×2 (09:37→20:25)
[2017-08-22] MEDS: FUROSEMIDE 20 MG/2 ML VIAL IV PUSH SCH ×2 (09:38→20:25)
[2017-08-22] MEDS: D5-NS + KCL 20 MEQ INJ 1,000 ML IV SCH (10:29)
[2017-08-22] MEDS: MORPHINE SULFATE 30 MG/30 ML PCA IV SCH ×2 (11:39→23:05)
--- NOTE | 2017-08-22 12:06 | EKG ---
Date Performed: 08/21/2017 Time Performed: 16:05:14 PTAGE: 67 years EKG: SINUS TACHYCARDIA POSSIBLE RIGHT VENTRICULAR CONDUCTION DELAY Normal ECG PREVIOUS TRACING : 08/18/2017 12.29 Compared to prior tracing no significant change DOCTOR: Govind Guevara Interpretating Date/Time 08/22/2017 12:04:02
[2017-08-22] MEDS: LEVOFLOXACIN 500 MG TAB PO SCH (14:21)
[2017-08-22] MEDS ORDERED: SOD PHOSPHATE/SOD BIPHOSPHATE (ADULT) ENEMA 133ML RECTAL ONE (21:45)
[2017-08-22] MEDS ORDERED: IOHEXOL 350 MG/ML 10 ML VIAL (for RAD DIAG) IVCONTRAST ONE (21:58)
--- NOTE | 2017-08-22 22:13 | RADRPT ---
EXAM DATE/TIME: 08/22/2017 21:45 This report includes an Addendum and supersedes previous reports for this exam. [facility] COMPARISON: No previous studies available for comparison. INDICATIONS : Short of breath. Evaluate for embolism. IV CONTRAST: 75 cc Omnipaque 350 (iohexol) IV ; Cumulative dose for multiple exams. RADIATION DOSE: 14.26 CTDIvol (mGy) MEDICAL HISTORY : Colon cancer. SURGICAL HISTORY : None. ENCOUNTER: Initial ACUITY: 1 day PAIN SCALE: 0/10 LOCATION: chest TECHNIQUE: Volumetric scanning of the chest was performed using a pulmonary embolism protocol MIP images were re constructed. Using automated exposure control and adjustment of the mA and/or kV according to patien t size, radiation dose was kept as low as reasonably achievable to obtain optimal diagnostic quality images. DICOM format image data is available electronically for review and comparison. Follow-up recommendations for detected pulmonary nodules are based at a minimum on nodule size and pa tient risk factors according to Fleischner Society Guidelines. FINDINGS: PULMONARY ARTERIES: No evidence of pulmonary bolus. LUNGS: Patchy groundglass opacity in the left upper lobe 8mm nodular density in the left upper lobe on image #31. Large areas of dependent consolidations/atelectasis of the lower lobes. PLEURAE: There is no pleural thickening or pleural effusion. MEDIASTINUM: Coronary artery calcifications. Aortic diameter within normal limits. Multiple mildly prominent, like ly reactive mediastinal lymph nodes. MUSCULOSKELETAL: Within normal limits for patient age. MISCELLANEOUS: Abdomen will be fluid described on abdomen CT report. CONCLUSION: 1. No evidence of pulmonary embolus. 2. Large areas of dependent consolidation/atelectasis of lower lobes. Patchy groundglass opacity in t he left upper lobe. Differential diagnosis includes infection and pulmonary edema. Joe Cervantes MD on August 22, 2017 at 22:05 Board Certified Radiologist. This report was verified electronically. ADDENDUM: Addendum to conclusion: 3. 8mm nodular density in the left upper lobe. Using Fleischner 2017 criteri a, recommend 6 month followup noncontrast chest CT. Joe Cervantes MD on August 22, 2017 at 23:00 Board Certified Radiologist. This report was verified electronically.
--- NOTE | 2017-08-22 22:22 | RADRPT ---
EXAM DATE/TIME: 08/22/2017 21:47 [facility] COMPARISON: CT LUMBAR SPINE W/O CONTRAST, December 28, 2015, 12:51. INDICATIONS : Diffuse abdominal pain. IV CONTRAST: 75 cc Omnipaque 350 (iohexol) IV ; Cumulative dose for multiple exams. ORAL CONTRAST: No oral contrast ingested. RADIATION DOSE: 11.45 CTDIvol (mGy) MEDICAL HISTORY : Colon cancer. SURGICAL HISTORY : None. ENCOUNTER: Initial ACUITY: 1 day PAIN SCALE: 5/10 LOCATION: Bilateral abdomen TECHNIQUE: Volumetric scanning of the abdomen and pelvis was performed. Using automated exposure control and ad justment of the mA and/or kV according to patient size, radiation dose was kept as low as reasonably achievable to obtain optimal diagnostic quality images. DICOM format image data is available electro nically for review and comparison. FINDINGS: LOWER LUNGS: Lower lungs fully described on chest CT report. LIVER: Homogeneous density without lesion. There is no dilation of the biliary tree. No calcified gallston es. SPLEEN: Normal size without lesion. PANCREAS: Within normal limits. KIDNEYS: Left-sided double-J ureteral stent in place. Moderate diffuse left hydroureter. Mild to moderate left hydronephrosis. Mild right hydronephrosis. Proximal right hydroureter. Multiple bilateral renal cyst s. ADRENAL GLANDS: 2 cm x 1.6 cm right adrenal nodule. It measured 1.7 x 1.[address] lumbar spine of 12/28/2015. H ounsfield unit measurements on that study suggest adenoma. VASCULAR: There is no aortic aneurysm. BOWEL/MESENTERY: Postsurgical findings in the rectum. Surgical drain in the pelvis. Stoma in the right upper quadrant of the abdomen. Stranding opacity in the right upper quadrant of the abdomen indicating possible infl ammatory or postsurgical change. Wall thickening of the transverse colon diffusely, nonspecific. ABDOMINAL WALL: Stoma in the right upper quadrant RETROPERITONEUM: There is no lymphadenopathy. BLADDER: Hernandez catheter in place. Bladder collapsed. REPRODUCTIVE: Within normal limits. INGUINAL: There is no lymphadenopathy or hernia. MUSCULOSKELETAL: Old L3 lumbar spine vertebral body fracture. CONCLUSION: 1. Postsurgical findings are identified in the region of the rectum. Surgical drain in the right side of the pelvis/right lower quadrant. Stoma in the right upper quadrant. 2. Nonspecific diffuse wall thickening of collapsed transverse colon. 3. Left-sided double-J ureteral stent. Moderate diffuse left hydroureter and mild to moderate left hy dronephrosis. Mild right hydronephrosis. 4. 2 cm right adrenal nodule with slight increase in size when compared to 12/28/2015. Hounsfield unit measurements of the prior study suggest a likely adenoma. Joe Cervantes MD on August 22, 2017 at 22:11 Board Certified Radiologist. This report was verified electronically.
[2017-08-23] VITALS (8 sets, daily range): BP systolic 104–123; BP diastolic 58–70; PULSE 101–115; RESP 17–20; TEMP 97.1–98.5; O2SAT 86–92
[2017-08-23] MEDS: PCA - TOTAL MG MORPHINE DELIVERED PER SHIFT SCH ×3 (05:11→20:47)
[2017-08-23] MEDS: HEPARIN SODIUM - SQ 10,000 UNITS/ML VIAL SQ SCH ×2 (05:12→17:27)
[2017-08-23] MEDS: LORazepam 0.5 MG TAB PO PRN ×3 (05:16→18:43)
[2017-08-23] MEDS: ALVIMOPAN 12 MG CAPSULE PO SCH ×2 (08:19→20:37)
[2017-08-23] MEDS: PANTOPRAZOLE SOD 40 MG DELAYED RELEASE TAB PO SCH (08:19)
[2017-08-23] MEDS: SODIUM CHLORIDE 0.9% FLUSH 5 ML FLUSH IVF SCH ×2 (08:21→20:47)
[2017-08-23] MEDS: FUROSEMIDE 20 MG/2 ML VIAL IV PUSH SCH ×2 (08:21→20:38)
[2017-08-23] MEDS: METOCLOPRAMIDE HCL 10 MG/2 ML VIAL IVS SCH ×2 (08:24→20:37)
[2017-08-23] MEDS: D5-NS + KCL 20 MEQ INJ 1,000 ML IV SCH (10:10)
[2017-08-23] MEDS: RESP: ALBUTEROL 2.5 MG/3 ML NEB (SCH) INH ×4 (10:40→20:00)
[2017-08-23] MEDS: LEVOFLOXACIN 500 MG TAB PO SCH (14:24)
--- NOTE | 2017-08-23 16:31 | HHI.PR ---
Subjective Remarks C/R Surg POD # 5 afebrile, VSS UO good ? HUMA mod stoma functioning Objective - Vital Signs Date Time Temp Pulse Resp B/P (MAP) Pulse Ox O2 Delivery O2 Flow Rate FiO2 08/23/17 15:43 86 Nasal Cannula 6.00 08/23/17 12:00 97.1 101 17 111/59 (76) 08/21/17 08:45 50 Result Diagram: 08/22/17 0550 08/22/17 0550 Objective Remarks PE alert Abd - soft, wound dry, HUMA serosang stoma pink, A/P Assessment and Plan Imp: OOB dcre IVF start PO, adv resp tx watch UO Miller Barnett MD Aug 23, 2017 16:31
--- NOTE | 2017-08-23 17:29 | PD.WCN.NOT ---
Wound Consult Description: Consult for New Ostomy Teaching of stoma per Dr Barnett Communicated with: Patient Olya,RN Recommendation: [facility] opening and closing pouch, and attaching pouch to wafer. Read educational material left at bedside and write down any questions you may have for next teaching session Observe staff opening, emptying, and closing pouch when 1/3-1/2 full and participate Additional Information: Patient seen on [address] [place] [address] Ostomy Type: Ileostomy Surgeon: Miller Barnett MD Date of Surgery: Aug 18, 2017 Complete: Starter kit (Verbal consent obtained), Education materials (Replaced by [facility] educational materials left in patient room for reinforcement of teaching), Other (Supplies ordered in size 1 3/4" and 2 1/4" for when appliance needs to be changed.) Additional information Patient states that she just got comfortable, the Dr was just in and removed tape that law writer had removed on Wednesday, and the BOLT SORTER just emptied it. Could law writer come back tomorrow at 11am for teaching. [facility] Aug 23, 2017 17:29
--- NOTE | 2017-08-23 18:06 | MB ---
cc: KOTA FARIAS DATE OF CONSULTATION 08/23/[address] Redd REASON FOR CONSULTATION Respiratory insufficiency. HISTORY OF THE PRESENT ILLNESS Ms. Oh is a 67-year-old female with longstanding history of COPD, history of nicotine use. The patient was found to have rectal malignancy stage T4b. She underwent resection of the upper rectum, sigmoid colon and uterus. She had a diverting ileostomy done. The patient developed shortness of breath. She was hypoxic, she was put on non-rebreather mask, now she is weaned down to 6 liters nasal cannula. She has mild wheezing. Does not have fever or chills. No night sweats. No nausea or vomiting. She had a workup done. A CTA of the chest does not show any pulmonary embolism. It shows large area of dependent atelectasis, patchy ground glass opacity in the left upper lobe and an 8 mm nodular density in the left upper lobe. Her CBC showed a WBC count of 10.3, hemoglobin 12.3, hematocrit 36.2, MCV 91, platelet count 359. Sodium 131, potassium 3.3, chloride 102, CO2 29, BUN 4, creatinine 0.49. Her blood gas on non-rebreather mask pH 7.42, pCO2 38, pO2 55. PAST MEDICAL HISTORY Significant for a history of COPD. MEDICATIONS She is currently takin. Lasix 20 mg q.12h. 2. Levaquin 500 milligrams daily. 3. Albuterol nebulizer treatment. 4. Guaifenesin 600 milligrams twice a day. 5. Entereg 12 milligrams twice a day. 6. Heparin 5000 q.12h. 7. Protonix 40 milligrams daily. 8. [place] for pain. 9. Lorazepam 0.5 milligrams as needed. ALLERGIES ADHESIVE TAPE, ALL CILLINS, NSAIDS, ACETAMINOPHEN, ASPIRIN, CODEINE, ZITHROMAX, PENICILLIN. SOCIAL HISTORY She lives alone. A long history of smoking for 34 years which she quit one week prior to this admission. REVIEW OF SYSTEMS Normally she is up, around and active. No seizures, stroke or epilepsy. No DVT or pulmonary embolism. PHYSICAL EXAMINATION GENERAL: Elderly, female mild short of breath. VITAL SIGNS: She is currently on 6 liters nasal cannula saturation 92%. Her blood pressure is 111/59, heart rate 101, respirations 17, temperature 97.1. HEENT: Pupils are equal and reactive to light. Oral mucosa and nasal mucosa normal. NECK: Supple. JVP not raised. CHEST: Air entry equal bilaterally. She has decreased breath sounds at the bases. CARDIOVASCULAR: S1-S2 normal. ABDOMEN: Soft, nondistended. She has an abdominal wound. EXTREMITIES: No edema. IMPRESSION 1. Respiratory insufficiency. 2. Hypoxia, no pulmonary embolism. 3. Basilar atelectasis. 4. Lung collapse, left lung infiltrate. 5. COPD, mild exacerbation. 6. 8 mm lung nodule. 7. Status post abdominal surgery. PLAN I discussed with the patient and encouraged her to use incentive spirometry and Acapella. We will give her aerosol treatment, supplement her oxygen. I will give a short course of steroids, Solu-Medrol 40 milligrams q.8h. Continue antibiotic. Further treatment will depend on the course in the hospital. Thank you Dr. Redd for this consultation. MD MEKA Jackson/PENELOPE /4:06 PM /5:36 PM
--- NOTE | 2017-08-23 18:17 | PD.WCN.NOT ---
Wound Consult Description: Consult for New Ostomy Teaching of stoma per Dr Barnett Communicated with: Patient Recommendation: [facility] opening and closing pouch, and attaching pouch to wafer. Read educational material left at bedside and write down any questions you may have for next teaching session Observe staff opening, emptying, and closing pouch when 1/3-1/2 full and participate Additional Information: Patient seen for ostomy appliance check after receiving call from physician that there was a leak and BRAYAN Dobson stated that she would change the appliance. Ostomy Type: Ileostomy Surgeon: Miller Barnett MD Date of Surgery: Aug 18, 2017 Complete: Starter kit (Verbal consent obtained), Education materials ([facility] educational materials left in patient room for reinforcement of teaching), Other (Supplies ordered in size 1 3/4" and 2 1/4" for when appliance needs to be changed.) Educated patient on: Ensuring the pouch was closed at the bottom Checking around the entire appliance for leaks Additional information Upon entering room, patient CYBER SECURITY ADMINISTRATOR pump was alarming. Patient states that she and the RN had just changed the appliance. The appliance was found to have an open pouch that was not closed and the side at 9 o'clock was completely open. Stoma paste was used to secure the lateral side down and the pouch was closed at the bottom. Patient was educated on ensuring the pouch was closed. [facility] Aug 23, 2017 18:17
[2017-08-23] MEDS: MORPHINE SULFATE 30 MG/30 ML PCA IV SCH (18:34)
[2017-08-23] MEDS: methylPREDNISolone SOD SUCC 40 MG/1 ML VIAL IV PUSH SCH (20:37)
[2017-08-23] MEDS: ONDANSETRON HCL 4 MG/2 ML VIAL IV PUSH PRN (20:40)
[2017-08-23] MEDS: ACETAMINOPHEN/HYDROcodone 325 MG/5 MG TAB PO PRN (20:40)
[2017-08-23] MEDS ORDERED: methylPREDNISolone SOD SUCC 40 MG/1 ML VIAL IV PUSH SCH (22:00)
[2017-08-24] VITALS: BP 117/69; PULSE 110; RESP 17; TEMP 96.6; O2SAT 93
[2017-08-24] MEDS: LORazepam 0.5 MG TAB PO PRN ×3 (02:07→20:06)
[2017-08-24] MEDS: ACETAMINOPHEN/HYDROcodone 325 MG/5 MG TAB PO PRN ×2 (02:08→20:07)
[2017-08-24 04:28] LABS: AUTOMATED NEUTROPHIL # 11.3 TH/MM3 (1.8-7.7); BASOPHIL % 0.3 % (0.0-2.0); HEMATOCRIT 36.5 % (35.0-46.0); HEMO FLAGS DIFF FINAL; LYMPH % 3.8 % (9.0-44.0); LYMPHOCYTE # 0.5 TH/MM3 (1.0-4.8); MEAN CELL VOLUME 89.7 FL (80.0-100.0); MEAN CORPUSCULAR HEMOGLOBIN 30.4 PG (27.0-34.0); MEAN CORPUSCULAR HGB CONC 33.9 % (32.0-36.0); MONO % 2.5 % (0.0-8.0); NEUT % 93.4 % (16.0-70.0); PLATELET COUNT 446 TH/MM3 (150-450); RED BLOOD COUNT 4.07 MIL/MM3 (4.00-5.30); RED CELL DISTRIBUTION WIDTH 13.1 % (11.6-17.2); WHITE BLOOD COUNT 12.2 TH/MM3 (4.0-11.0)
[2017-08-24 04:45] LABS: POTASSIUM 3.7 MEQ/L (3.5-5.1)
[2017-08-24] MEDS: HEPARIN SODIUM - SQ 10,000 UNITS/ML VIAL SQ SCH ×2 (04:47→16:46)
[2017-08-24] MEDS: PCA - TOTAL MG MORPHINE DELIVERED PER SHIFT SCH ×2 (04:52→13:44)
[2017-08-24] MEDS: D5-NS + KCL 20 MEQ INJ 1,000 ML IV SCH ×2 (07:25→15:34)
[2017-08-24] MEDS: RESP: ALBUTEROL 2.5 MG/3 ML NEB (SCH) INH ×4 (07:51→20:00)
[2017-08-24 08:00] VITALS: BP 117/59; PULSE 109; RESP 16; TEMP 96.8; O2SAT 82
[2017-08-24] MEDS: methylPREDNISolone SOD SUCC 40 MG/1 ML VIAL IV PUSH SCH ×2 (08:35→20:06)
[2017-08-24] MEDS: ALVIMOPAN 12 MG CAPSULE PO SCH ×2 (08:35→20:06)
[2017-08-24] MEDS: PANTOPRAZOLE SOD 40 MG DELAYED RELEASE TAB PO SCH (08:35)
[2017-08-24] MEDS: SODIUM CHLORIDE 0.9% FLUSH 5 ML FLUSH IVF SCH ×2 (08:36→20:07)
[2017-08-24] MEDS: FUROSEMIDE 20 MG/2 ML VIAL IV PUSH SCH ×2 (08:36→20:06)
[2017-08-24] MEDS: METOCLOPRAMIDE HCL 10 MG/2 ML VIAL IVS SCH ×2 (08:36→20:05)
[2017-08-24] MEDS: MORPHINE SULFATE 30 MG/30 ML PCA IV SCH (10:47)
[2017-08-24 12:00] VITALS: BP 119/63; PULSE 98; RESP 18; TEMP 97.3; O2SAT 89
--- NOTE | 2017-08-24 12:14 | PD.WCN.NOT ---
Wound Consult Description: Consult for New Ostomy Teaching of stoma per Dr Barnett Communicated with: Patient BRAYAN Mayer Recommendation: Practice opening and closing pouch, and attaching pouch to wafer. Read educational material left at bedside Observe staff opening, emptying, and closing pouch when 1/3-1/2 full and participate in emptying pouch Additional Information: Patient seen on [place] for ostomy assessment and teaching. Patient was complaining of itching to her keeley areas as well. Bilateral inner thighs and labia were discolored yet no longer red when compared to yesterdays assessment when junior technical writer and patient washed the areas and left them open to air. Recommend to obtain Nystatin powder and apply and leave open to air. Ostomy Type: Ileostomy Surgeon: Miller Barnett MD Date of Surgery: Aug 18, 2017 Complete: Starter kit (Kit sent to home), Education materials ([facility] educational materials left in patient room for reinforcement of teaching), Rx ( left on chart), Other (Supplies ordered in size 1 3/4" and 2 1/4" for patient to go home with) Educated patient on: Peristomal skin care Removing pouch with adhesive removal wipes Cleansing around stoma with water only Allowing peristomal skin to dry thoroughly prior to applying new wafer Warming wafer before applying to skin Attaching pouch to wafer Using stoma powder and Cavilon skin prep for encrusting broken down skin Closing pouch at the bottom to avoid leaks Script left on chart Additional information Patient seen on for ostomy assessment and further teaching of ileostomy noted to right side abdomen. Appliance was changed on 08/23/17 with patient assisting RN. Today there is erythema noted laterally to the appliance. Stoma powder was sprinkled over the area and then brushed away. Cavilon skin prep was then sprayed over the area to encrust and provide protection and left open to air. Appliance is intact and noted without leaks. Stoma is red, moist and functioning with dark soft green effluent noted in pouch. Narda Camargo [facility] Aug 24, 2017 12:14
[2017-08-24] MEDS ORDERED: NYSTATIN 100,000 U/GM PWD 15 GM BTL TOPICAL PRN (13:45)
[2017-08-24] MEDS: LEVOFLOXACIN 500 MG TAB PO SCH (14:43)
[2017-08-24 16:00] VITALS: BP 123/62; PULSE 107; RESP 18; TEMP 97.8; O2SAT 90
--- NOTE | 2017-08-24 18:34 | HHI.PR ---
Subjective Remarks 67 YOWF with abd surgery, ileostomy, COPD exac On Oxymask Desaturates on NC Anxious to go home Feels breathing better Objective Vital Signs Vital Signs Date Time Temp Pulse Resp B/P (MAP) Pulse Ox O2 Delivery O2 Flow Rate FiO2 08/24/17 16:00 97.8 107 18 123/62 (82) 90 08/24/17 13:44 15 08/24/17 12:00 97.3 98 18 119/63 (81) 89 08/24/17 10:47 15 08/24/17 08:00 96.8 109 16 117/59 (78) 82 08/24/17 07:50 Nasal Cannula 6.00 08/24/17 04:52 20 08/24/17 03:20 19 08/24/17 00:00 96.6 110 17 117/69 (85) 93 08/23/17 23:22 Nasal Cannula 5.00 08/23/17 20:47 20 08/23/17 20:00 98.5 110 18 123/70 (87) 91 I/O 08/23/17 08/23/17 08/23/17 08/24/17 08/24/17 08/24/17 07:00 15:00 23:00 07:00 15:00 23:00 Intake Total 115 ml 1440 ml 500 ml 120 ml Output Total 690 ml 445 ml 745 ml 450 ml 140 ml 725 ml Balance -575 ml -445 ml 695 ml 50 ml -140 ml -605 ml Intake Oral 1440 ml 500 ml 120 ml IV Total 115 ml Output Urine Total 500 ml 650 ml 450 ml 650 ml Stool Total 150 ml 425 ml 75 ml 110 ml 75 ml Drainage Total 40 ml 20 ml 20 ml 30 ml Result Diagram: 08/24/1740408/24/17404 Objective Remarks GENERAL: MBMN WF, mild sob SKIN: Warm and dry. HEAD: Normocephalic. EYES: No scleral icterus. No injection or drainage. NECK: Supple, trachea midline. No JVD or lymphadenopathy. CARDIOVASCULAR: Regular rate and rhythm without murmurs, gallops, or rubs. RESPIRATORY: Breath sounds equal bilaterally. No accessory muscle use. Exp rhonchi GASTROINTESTINAL: Abdomen soft, non-tender, nondistended. Ileostomy MUSCULOSKELETAL: No cyanosis, or edema. BACK: Nontender without obvious deformity. No CVA tenderness. A/P Assessment and Plan COPD with exac Hypoxia Atelactesis 8 mm Lung nodule S/p Ileostomy PLAN: Aerosol nebs IV Solumedrol Pulm Toilet Encourage to use IS Supplement 02 to keep sat >88% Nolan Loco MD Aug 24, 2017 18:34
[2017-08-24 20:00] VITALS: BP 114/64; PULSE 111; RESP 17; TEMP 96; O2SAT 91
[2017-08-24 20:24] VITALS: O2SAT 92
[2017-08-25] VITALS (7 sets, daily range): BP systolic 101–123; BP diastolic 57–68; PULSE 84–101; RESP 16–20; TEMP 96.5–97.7; O2SAT 83–94
[2017-08-25] MEDS: D5-NS + KCL 20 MEQ INJ 1,000 ML IV SCH ×2 (01:01→15:55)
[2017-08-25] MEDS: LORazepam 0.5 MG TAB PO PRN ×3 (03:31→21:15)
[2017-08-25] MEDS: ACETAMINOPHEN/HYDROcodone 325 MG/5 MG TAB PO PRN ×3 (03:31→18:13)
[2017-08-25] MEDS: HEPARIN SODIUM - SQ 10,000 UNITS/ML VIAL SQ SCH ×2 (05:10→17:14)
[2017-08-25] MEDS: PANTOPRAZOLE SOD 40 MG DELAYED RELEASE TAB PO SCH (08:51)
[2017-08-25] MEDS: ALVIMOPAN 12 MG CAPSULE PO SCH ×2 (08:51→21:15)
[2017-08-25] MEDS: methylPREDNISolone SOD SUCC 40 MG/1 ML VIAL IV PUSH SCH (08:51)
[2017-08-25] MEDS: FUROSEMIDE 20 MG/2 ML VIAL IV PUSH SCH (08:51)
[2017-08-25] MEDS: METOCLOPRAMIDE HCL 10 MG/2 ML VIAL IVS SCH (08:52)
[2017-08-25] MEDS: SODIUM CHLORIDE 0.9% FLUSH 5 ML FLUSH IVF SCH ×2 (09:38→21:00)
[2017-08-25] MEDS ORDERED: METOCLOPRAMIDE HCL 10 MG/2 ML VIAL IVS PRN (12:00)
[2017-08-25] MEDS: LEVOFLOXACIN 500 MG TAB PO SCH (13:43)
--- NOTE | 2017-08-25 14:02 | HHI.PR ---
Subjective Remarks C/R Surg POD # 7 afebrile, VSS UO good stoma functioning resp better Objective - Vital Signs Date Time Temp Pulse Resp B/P (MAP) Pulse Ox O2 Delivery O2 Flow Rate FiO2 08/25/17 12:00 96.6 84 17 117/62 (80) 83 08/25/17 12:00 Nasal Cannula 6.00 08/21/17 08:45 50 Result Diagram: 08/24/17 0405 08/24/17404 Objective Remarks PE alert Abd - soft, wound dry, stoma pink, A/P Assessment and Plan Imp: OOB dcre IVF start PO, adv resp tx DC Miller Taylor MD Aug 25, 2017 14:02
[2017-08-25] MEDS ORDERED: HYDR-3516 PO (14:05)
--- NOTE | 2017-08-25 16:33 | RADRPT ---
EXAM DATE/TIME: 08/25/2017 16:19 [facility] COMPARISON: CT PULMONARY ANGIOGRAM, August 22, 2017, 21:45. INDICATIONS : Short of breath. MEDICAL HISTORY : Colon cancer. Chronic obstructive pulmonary disease. SURGICAL HISTORY : Colostomy. ENCOUNTER: Subsequent ACUITY: 1 week PAIN SCORE: 0/10 LOCATION: Bilateral chest FINDINGS: PA and lateral views of the chest demonstrate a stable elongated infiltrate the right lung base. Smal l area of consolidation left midlung zone. No visible pneumothorax. The right costophrenic angle is b lunted suggesting pleural effusion. The cardiomediastinal contours are unremarkable. Osseous struct ures are intact. Right thoracic scoliosis. CONCLUSION: Persistent consolidation of the right lung base. Small area of consolidation left midlung zone stable . Skip Gaspar MD on August 25, 2017 at 16:30 Board Certified Radiologist. This report was verified electronically.
[2017-08-25 17:24] LABS: BACTERIA, URINE OCC /hpf; BLOOD, URINE LARGE (NEG); COMMENT (UR) CULTURE INDICATED; CULTURE IF INDICATED CULTURE INDICATED; GLUCOSE,URINE NEG (NEG); KETONE, URINE NEG (NEG); MUCUS URINE FEW /lpf (OCC); NITRITE,URINE NEG (NEG); PH, URINE 6.5 (5.0-8.5); SQUAMOUS EPITHELIAL CELL URINE 9 /hpf (0-5)
[2017-08-25 17:25] LABS: URINE COLOR LIGHT-RED (YELLW/STRAW)
--- NOTE | 2017-08-25 17:35 | HHI.PR ---
Subjective Remarks 67 YOWF with abd surgery, ileostomy, COPD exac Anxious to go home Feels breathing better On NC Had nasal bleed , better now Objective Vital Signs Vital Signs Date Time Temp Pulse Resp B/P (MAP) Pulse Ox O2 Delivery O2 Flow Rate FiO2 08/25/17 16:00 97.1 85 17 101/57 (72) 91 08/25/17 12:00 96.6 84 17 117/62 (80) 83 08/25/17 12:00 92 Nasal Cannula 6.00 08/25/17 08:00 97.7 91 16 123/61 (81) 90 08/25/17 03:10 93 Nasal Cannula 6.00 08/25/17 00:00 96.5 101 17 120/65 (83) 91 08/24/17 20:24 92 Nasal Cannula 6.00 08/24/17 20:22 Nasal Cannula 6.00 Humidified 08/24/17 20:00 96.0 111 17 114/64 (81) 91 I/O 08/24/17 08/24/17 08/24/17 08/25/17 08/25/17 08/25/17 07:00 15:00 23:00 07:00 15:00 23:00 Intake Total 500 ml 120 ml 240 ml Output Total 450 ml 140 ml 825 ml 1010 ml Balance 50 ml -140 ml -705 ml -770 ml Intake Oral 500 ml 120 ml 240 ml Output Urine Total 450 ml 650 ml 750 ml Stool Total 110 ml 175 ml 260 ml Drainage Total 30 ml Result Diagram: 08/24/1740408/24/17404 Objective Remarks GENERAL: MBMN WF, mild sob SKIN: Warm and dry. HEAD: Normocephalic. EYES: No scleral icterus. No injection or drainage. NECK: Supple, trachea midline. No JVD or lymphadenopathy. CARDIOVASCULAR: Regular rate and rhythm without murmurs, gallops, or rubs. RESPIRATORY: Breath sounds equal bilaterally. No accessory muscle use. Exp rhonchi GASTROINTESTINAL: Abdomen soft, non-tender, nondistended. Ileostomy MUSCULOSKELETAL: No cyanosis, or edema. BACK: Nontender without obvious deformity. No CVA tenderness. A/P Assessment and Plan COPD with exac Hypoxia Atelactesis 8 mm Lung nodule S/p Ileostomy PLAN: Aerosol nebs IV Solumedrol Pulm Toilet Encourage to use IS Supplement 02 to keep sat >88% Arrange home 02 Nolan Loco MD Aug 25, 2017 17:35
[2017-08-26 00:30] VITALS: BP 114/64; PULSE 94; RESP 20; TEMP 97.9; O2SAT 90
[2017-08-26 04:51] VITALS: BP 116/62; PULSE 82; RESP 20; TEMP 97.4; O2SAT 90
[2017-08-26] MEDS: ACETAMINOPHEN/HYDROcodone 325 MG/5 MG TAB PO PRN (05:53)
[2017-08-26] MEDS: HEPARIN SODIUM - SQ 10,000 UNITS/ML VIAL SQ SCH (05:57)
[2017-08-26] MEDS: ALVIMOPAN 12 MG CAPSULE PO SCH (07:43)
[2017-08-26] MEDS: PANTOPRAZOLE SOD 40 MG DELAYED RELEASE TAB PO SCH (07:43)
[2017-08-26] MEDS: LORazepam 0.5 MG TAB PO PRN (07:43)
[2017-08-26] MEDS: SODIUM CHLORIDE 0.9% FLUSH 5 ML FLUSH IVF SCH (07:58)
[2017-08-26 08:00] VITALS: BP 112/67; PULSE 80; RESP 18; TEMP 96; O2SAT 93
[2017-08-26 08:52] VITALS: O2SAT 92
[2017-08-26] MEDS ORDERED: predniSONE 20 MG TAB PO SCH (09:00)
--- NOTE | 2017-08-26 10:31 | HHI.PR ---
Subjective Remarks C/R Surg POD afebrile, VSS UO good stoma functioning resp better Objective - Vital Signs Date Time Temp Pulse Resp B/P (MAP) Pulse Ox O2 Delivery O2 Flow Rate FiO2 08/26/17 08:52 92 Nasal Cannula 2.00 08/26/17 08:00 96.0 80 18 112/67 (82) Result Diagram: 08/24/1740408/24/17404 Objective Remarks PE alert Abd - soft, wound dry, stoma pink, functioning A/P Assessment and Plan Imp: OOB dcre IVF start PO, adv resp tx dc to home per pulmonary, ? home O2 Miller Barnett MD Aug 26, 2017 10:31
== END 2017-08-26 11:37 | disposition left against medical advice (07) | DRG 330 ==
LOC: HSDI 11:53 → HCPC 19:45 → N07B 08-19 22:46 → N03A 08-21 16:32 → N07B 08-22 15:20
PROVIDERS: ADMIT Colon & Rectal Surgery; ATTEND Colon & Rectal Surgery
PROC: 0UT90ZZ Resection of Uterus, Open Approach (ICD-10-PCS; 2017-08-18)
PROC: 0UTC0ZZ Resection of Cervix, Open Approach (ICD-10-PCS; 2017-08-18)
PROC: 0UT20ZZ Resection of Bilateral Ovaries, Open Approach (ICD-10-PCS; 2017-08-18)
PROC: 0UT70ZZ Resection of Bilateral Fallopian Tubes, Open Approach (ICD-10-PCS; 2017-08-18)
PROC: 0DU Gastrointestinal System, Supplement (ICD-10-PCS; 2017-08-18)
PROC: 0DTP0ZZ Resection of Rectum, Open Approach (ICD-10-PCS; 2017-08-18)
PROC: 0DTN0ZZ Resection of Sigmoid Colon, Open Approach (ICD-10-PCS; 2017-08-18)
PROC: 0T788DZ Dilation of Bilateral Ureters with Intraluminal Device, Via Natural or Artificial Opening Endoscopic (ICD-10-PCS; 2017-08-18)
PROC: 0D1B0Z4 Bypass Ileum to Cutaneous, Open Approach (ICD-10-PCS; principal; 2017-08-18 14:59)
PROC: 0T9480Z Drainage of Left Kidney Pelvis with Drainage Device, Via Natural or Artificial Opening Endoscopic (ICD-10-PCS; 2017-08-18 14:59)
DX: C19 Malignant neoplasm of rectosigmoid junction (principal); N82.3 Fistula of vagina to large intestine; J44.1 Chronic obstructive pulmonary disease with (acute) exacerbation; N99.71 Accidental puncture and laceration of a genitourinary system organ or structure during a genitourinary system procedure; J98.11 Atelectasis; Y83.6 Removal of other organ (partial) (total) as the cause of abnormal reaction of the patient, or of later complication, without mention of misadventure at the time of the procedure; R09.02 Hypoxemia; E87.70 Fluid overload, unspecified; R91.1 Solitary pulmonary nodule; Z87.891 Personal history of nicotine dependence; F41.9 Anxiety disorder, unspecified
CPT/HCPCS: 36600; 71010; 71020; 71275; 74000; 74177; 80048; 81001; 82805; 83880; 84155; 85025; 86301; 86850; 86900; 86901; 87086; 88305; 88307; 88309; 93005; 94150; 94640; 94664; 94667; 94668; C1769; C2617; C9113; J1100; J1170; J1644; J1940; J1956; J2250; J2270; J2370; J2405; J2765; J2920; J3010; J3480; J7120; J7512; J7613; Q9967